=== PATIENT | male | born 1955 | race Caucasian/White ===

== ENCOUNTER 2016-07-17 11:00 | Inpatient (IN) | payer MEDICARE, MEDICAID ==
[2016-07-17] MEDS ORDERED: Thiamine IV* 100 MG, Folic Acid IV* 1 MG, Multiple Vitamin IV ADULT* 10 ML in NS 0.9% 1... IV ONE (11:44)
[2016-07-17] MEDS ORDERED: LORazepam INJ* 2 MG/ML 1 ML VIAL IV ONE (11:44)
[2016-07-17] MEDS ORDERED: Omeprazole CAP* 20 MG PO ONE (11:46)
[2016-07-17 12:04] LABS: Hematocrit 42 % (42-52); Hemoglobin 14.4 g/dl (14.0-18.0); Mean Corpuscular HGB Conc 34 g/dl (31-36); Mean Corpuscular Hemoglobin 34 pg (27-31); Mean Corpuscular Volume 100 fL (80-94); Mean Platelet Volume 9 um3 (7.4-10.4); Red Blood Count 4.21 10^6/ul (4.0-5.4); Red Cell Distribution Width 14 % (10.5-15); White Blood Count 3.4 10^3/ul (3.5-10.8)
[2016-07-17 12:06] LABS: Comments Flag Yes
[2016-07-17 12:08] LABS: Add Diff/Slide Review? Slide Review Added
[2016-07-17 12:18] LABS: ALT 60 U/L (7-52); AST 122 U/L (13-39); Albumin 4.1 g/dL (3.2-5.2); Alkaline Phosphatase 90 U/L (34-104); BUN/Creatinine Ratio 7.3 (8-20); Blood Urea Nitrogen 4 mg/dL (6-24); CO2 Carbon Dioxide 30 mmol/L (22-32); Calcium 9.9 mg/dL (8.6-10.3); Chloride 84 mmol/L (101-111); EGFR African American 196.1 (>60); EGFR Non-African American 152.5 (>60); Globulin 3.2 g/dL (2-4); Glucose 103 mg/dL (70-100); Sodium 132 mmol/L (133-145); Total Protein 7.3 g/dL (6.4-8.9)
[2016-07-17 12:29] LABS: Anion Gap 18 mmol/L (2-11); Potassium 2.5 mmol/L (3.5-5.0)
[2016-07-17 12:37] LABS: Urine Bacteria Absent (Absent); Urine Bilirubin Negative (Negative); Urine Glucose Negative (Negative); Urine Nitrite Negative (Negative)
[2016-07-17] MEDS ORDERED: Potassium Chloride LIQUID* 20 MEQ PACKET PO ONE (12:44)
[2016-07-17 12:45] LABS: Benzodiazepine Urine Screen None Detected (None Detect)
[2016-07-17 12:47] LABS: Alcohol < 10 mg/dL (<10)
[2016-07-17] MEDS ORDERED: LORazepam INJ* 2 MG/ML 1 ML VIAL ONE (13:40)
[2016-07-17] MEDS ORDERED: LORazepam INJ* 2 MG/ML 1 ML VIAL IV PUSH ONE (13:42)
[2016-07-17] MEDS ORDERED: Al Hydrox/Mg Hydrox/Simet LIQ* 30 ML UDC PO PRN (14:18)
[2016-07-17] MEDS ORDERED: Acetaminophen TAB* 325 MG PO PRN (14:21)
[2016-07-17 15:46] LABS: Albumin 3.7 g/dL (3.2-5.2); BUN/Creatinine Ratio 8.5 (8-20); Calcium 9.1 mg/dL (8.6-10.3); EGFR Non-African American 113.6 (>60); Globulin 2.6 g/dL (2-4); Total Bilirubin 1.1 mg/dL (0.2-1.0); Total Protein 6.3 g/dL (6.4-8.9)
[2016-07-17] MEDS: Enoxaparin(*) 40 MG/0.4 ML SYR SUBCUT SCH (15:46)
[2016-07-17 15:48] LABS: Potassium 2.6 mmol/L (3.5-5.0)
[2016-07-17] MEDS: Gabapentin CAP(*) 300 MG PO SCH ×2 (16:22→20:38)
[2016-07-17] MEDS: Potassium Chlor TAB* 20 MEQ TAB.ER PO SCH ×2 (16:22→17:29)
[2016-07-17] MEDS: NS 0.9% 1000 ML* 1,000 ML IV SCH (20:30)
[2016-07-17] MEDS: QUEtiapine TAB* 25 MG PO SCH (20:38)
--- NOTE | 2016-07-17 21:45 | HP ---
HISTORY AND PHYSICAL: DATE OF ADMISSION: 07/17/16 PRIMARY CARE PHYSICIAN: Unknown. CHIEF COMPLAINT: "I got a shot of Invega." HISTORY OF PRESENT ILLNESS: Mr. Vilchis is a 61-year-old male with a past medical history of alcohol abuse, schizoaffective disorder bipolar type, and GERD, who presents to the hospital after EMS found him in his apartment, unable to get out of bed, with his apartment in disarray. The patient's thinking is somewhat scattered and it is difficult to get an accurate history from him. The patient blames his current difficulty in ambulating and his weakness on his Invega medication, which he gets for his schizoaffective disorder. He gets this monthly and seems like his last dose was on 07/05/16. However, the patient states he got his dose on 06/22/16 at some sort of a alliance party. He attributes this to his difficulty with balance and he says he has been falling at home; he is becoming progressively weaker, and then today could not even get out of his chair. He states that he has not had anything to eat for the past 3 days. He does endorse drinking "whatever I can get my hands on." He states he usually has a [id number] of liquor per day. I am not clear how the EMS were alerted to the patient, but on arrival, there was a lot of empty liquor bottles, the patient was disheveled. He states that he was using the trash can for bathroom and he was unable to stand up, and he was brought to the emergency room for further evaluation. Of note, the patient's last admission here was in 2011, where he was admitted to the Psychiatric Floor. PAST MEDICAL HISTORY: Schizoaffective disorder, bipolar type; GERD; alcohol abuse. PAST SURGICAL HISTORY: None. MEDICATIONS: 1. Seroquel 50 mg by mouth at bedtime. 2. Invega 156 mg IM every 30 days. 3. Omeprazole 20 mg by mouth daily. 4. Gabapentin 300 mg by mouth 4 times daily. Although it is unclear how much the patient has been taking of these medications. However, he has had these refilled within the past month or so by his psychiatrist, Dr. Hermosillo. ALLERGIES: No known drug allergies. FAMILY HISTORY: Noncontributory. REVIEW OF SYSTEMS: The patient reports some intermittent abdominal pain. Denies any shortness of breath or chest pain. He has had some nausea and vomiting, last of which was yesterday. He denies any hematemesis. Reports some diarrhea. Remainder of 12-point review of systems is negative, except for that as noted in the HPI. PHYSICAL EXAMINATION GENERAL: The patient is a middle-aged, disheveled, man, lying in bed , asleep, slightly difficult to arouse. VITAL SIGNS: On admission, temperature 98.1, heart rate of 111, respiratory rate of 18, O2 saturation 97% on room air, blood pressure 149/84. HEENT: Pupils are equal, round, reactive to light and accommodation. Anicteric sclerae. Dry mucous membranes. NECK: No cervical adenopathy. LUNGS: Clear to auscultation bilaterally. No wheezes, rales, or rhonchi. CARDIOVASCULAR: Regular rate and rhythm. S1 and S2 present. No murmurs, gallops or rubs. ABDOMEN: Soft, nontender, nondistended. Bowel sounds positive. EXTREMITIES: No cyanosis, clubbing or edema. NEUROLOGIC: The patient is alert and oriented. No focal neurological deficits. No tremor noted. SKIN: Warm, dry, and well perfused. DIAGNOSTIC STUDIES/LABORATORY DATA: White blood cell count of 3.4, hematocrit of 42, platelets of 66. Sodium 132, potassium 2.5, chloride of 84, carbon dioxide of 30, BUN of 4, creatinine of 0.55, glucose of 103. Total bilirubin of 1.10, AST of 122, ALT of 60. Urinalysis with 2+ ketones, 2+ blood, 1+ WBCs. Serum alcohol is negative. Hepatitis C antibody is negative. U-tox is negative. EKG, personally reviewed, shows sinus tachycardia. No acute ST or T-wave changes. ASSESSMENT AND PLAN: Alcohol withdrawal, difficulty ambulating, weakness in a 61- year-old man, with a past medical history of alcohol abuse; schizoaffective disorder, bipolar type; and GERD. 1. Alcohol withdrawal: The patient received 2 mg of Ativan x2 in the emergency department. We will start the patient on WAM protocol. We will start normal saline at 100 cc per hour, p.r.n. Ativan available. The patient received a banana bag in the ED . We will continue on thiamine, folate, and multivitamin daily. 2. Mild alcoholic hepatitis, likely due to alcohol abuse. LFTs only minimally elevated. We will monitor and trend for now. 3. Thrombocytopenia, likely due to longstanding alcohol abuse. We will monitor daily and check for signs of bleeding. 4. Weakness: We will get a PT evaluation to assess the patient's physical status. 5. DVT prophylaxis: Lovenox subcu, which we can continue for now unless the platelets drop lower than 50. 6. Schizoaffective disorder: For now, we will continue the patient's home Seroquel and gabapentin. We will hold off on his psych consult at the moment. We will treat the patient's alcohol withdrawal and see how he is doing from a psychiatric standpoint after this. We will get a social work consult. 7. GERD: Continue home PPI. 8. Code status: The patient is full code. TIME SPENT: Total time spent on this admission 50 minutes, with over half the time spent [id number] with the patient in counseling and coordinating care. [id number]/CPS #: [id number] DEL
[2016-07-17] MEDS: LORazepam TAB(*) 1 MG PO SCH (22:19)
[2016-07-18] MEDS: LORazepam TAB(*) 1 MG PO SCH ×9 (04:54→23:22)
[2016-07-18 06:25] LABS: Hematocrit 38 % (42-52); Hemoglobin 12.9 g/dl (14.0-18.0); Mean Corpuscular HGB Conc 34 g/dl (31-36); Mean Corpuscular Hemoglobin 34 pg (27-31); Mean Corpuscular Volume 101 fL (80-94); Mean Platelet Volume 10 um3 (7.4-10.4); Red Blood Count 3.78 10^6/ul (4.0-5.4); Red Cell Distribution Width 15 % (10.5-15); White Blood Count 3.9 10^3/ul (3.5-10.8)
[2016-07-18 06:28] LABS: Comments Flag Yes
[2016-07-18 06:40] LABS: Albumin 3.3 g/dL (3.2-5.2); BUN/Creatinine Ratio 7.8 (8-20); Calcium 8.1 mg/dL (8.6-10.3); EGFR African American 213.9 (>60); EGFR Non-African American 166.3 (>60); Globulin 2.5 g/dL (2-4); Total Bilirubin 1.1 mg/dL (0.2-1.0); Total Protein 5.8 g/dL (6.4-8.9)
[2016-07-18 06:43] LABS: Potassium 2.4 mmol/L (3.5-5.0)
[2016-07-18] MEDS ORDERED: Potassium Chlor TAB* 20 MEQ TAB.ER PO ONE (06:50)
[2016-07-18] MEDS: Omeprazole CAP* 20 MG PO SCH (07:18)
[2016-07-18] MEDS: NS 0.9% 1000 ML* 1,000 ML IV SCH ×2 (07:21→17:50)
[2016-07-18] MEDS: Folic Acid TAB* 1 MG PO SCH (08:26)
[2016-07-18] MEDS: Thiamine TAB* 100 MG TAB PO SCH (08:26)
[2016-07-18] MEDS: Gabapentin CAP(*) 300 MG PO SCH ×4 (08:26→23:11)
[2016-07-18] MEDS: Multivitamins/Minerals TAB PO SCH (08:26)
[2016-07-18] MEDS ORDERED: Influenza VAC *QUAD* 2016-17* 0.5 ML SYRINGE IM ONE (09:00)
[2016-07-18] MEDS ORDERED: Pneumococcal *Vac Polyvalent 0.5 ML VIAL IM ONE (09:00)
[2016-07-18 09:18] LABS: Magnesium 1.1 mg/dL (1.9-2.7); Phosphorus 1.9 mg/dL (2.5-5.0)
[2016-07-18] MEDS: Potassium Chlor TAB* 20 MEQ TAB.ER PO SCH ×2 (09:38→12:04)
[2016-07-18 14:05] LABS: BUN/Creatinine Ratio 10.5 (8-20); Calcium 8.4 mg/dL (8.6-10.3); EGFR African American 188.2 (>60); EGFR Non-African American 146.3 (>60); Magnesium 1.1 mg/dL (1.9-2.7); Phosphorus 1.8 mg/dL (2.5-5.0); Potassium 3.6 mmol/L (3.5-5.0)
[2016-07-18] MEDS: Enoxaparin(*) 40 MG/0.4 ML SYR SUBCUT SCH (14:12)
[2016-07-18] MEDS ORDERED: Magnesium Sulfate IV* 3 GM in NS 0.9% 100 ML* 100 ML IVPB ONE (14:43)
[2016-07-18] MEDS ORDERED: Potassium Phosphate IV* 15 MMOLE in NS 0.9% 250 ML* 250 ML IVPB ONE (14:43)
--- NOTE | 2016-07-18 15:18 | PN ---
Subjective Date of Service: 07/18/16 Interval History: Patient seen this afternoon. Currently asleep, snoring loudly. Has been agitated and scoring high on WAM during the morning. Also had witnessed fall this morning, head glanced the table as he fell onto his bottom. Family History: Unchanged from Admission Social History: Unchanged from Admission Past Medical History: Unchanged from Admission Objective Active Medications: Acetaminophen (Tylenol Tab*) 650 mg PO Q4H PRN Al Hydrox/Mg Hydrox/Simethicone (Maalox Plus*) 30 ml PO Q6H PRN Enoxaparin Sodium (Lovenox(*)) 40 mg SUBCUT Q24H ELIS Folic Acid (Folvite Tab*) 1 mg PO DAILY ELIS Gabapentin (Neurontin Cap(*)) 300 mg PO QID ELIS Sodium Chloride (Ns 0.9% 1000 Ml*) 1,000 mls @ 100 mls/hr IV PER RATE ELIS Potassium Phosphate 15 mmole/ (Sodium Chloride) 255 mls @ 42 mls/hr IVPB ONCE ONE Magnesium Sulfate 3 gm/ Sodium (Chloride) 106 mls @ 53 mls/hr IVPB ONCE ONE Lorazepam (Ativan Tab(*)) 0 mg PO .PER WAM SCORE ELIS Lorazepam (Ativan Tab(*)) 2 mg PO Q8H ELIS Multivitamins/Minerals (Theragran/Minerals Tab*) 1 tab PO DAILY ELIS Omeprazole (Prilosec Cap*) 20 mg PO 0730 ELIS Quetiapine Fumarate (Seroquel Tab*) 50 mg PO BEDTIME ELIS Thiamine HCl (Vitamin B-1 Tab*) 100 mg PO DAILY [facility] Vital Signs 07/17/16 07/17/16 07/17/16 15:18 15:47 15:49 Temperature 98.7 F 98.7 F Pulse Rate 126 125 Respiratory 18 18 18 Rate Blood Pressure 121/69 121/69 (mmHg) O2 Sat by Pulse 99 99 Oximetry 07/18/16 07/18/16 07/18/16 04:01 04:47 04:54 Temperature 98.5 F Pulse Rate 115 90 Respiratory 18 18 Rate Blood Pressure 133/77 159/85 (mmHg) O2 Sat by Pulse 98 100 Oximetry 07/18/16 07/18/16 07/18/16 13:11 14:04 14:06 Temperature 98.3 F Pulse Rate 127 125 Respiratory 16 16 16 Rate Blood Pressure 141/74 155/98 (mmHg) O2 Sat by Pulse 100 99 Oximetry Oxygen Devices in Use Now: None Appearance: Middle-aged, M, laying in bed, asleep Eyes: No Scleral Icterus Ears/Nose/Mouth/Throat: - - Dry MM Neck: NL Appearance and Movements; NL JVP Respiratory: Symmetrical Chest Expansion and Respiratory Effort, Clear to Auscultation Cardiovascular: NL Sounds; No Murmurs; No JVD, RRR Abdominal: NL Sounds; No Tenderness; No Distention Lymphatic: No Cervical Adenopathy Extremities: No Edema Skin: No Rash or Ulcers Neurological: - - Asleep, snoring loudly Result Diagrams: 07/18/16 05:45 07/18/16 13:40 Additional Lab and Data: Assess/Plan/Problems-Billing Assessment: EtOH withdrawal in a 61 yo M with hx of EtOH abuse, schizoaffective disorder and GERD - Patient Problems (1) Alcohol withdrawal Current Visit: Yes Comment: Patient requiring significant doses of Ativan. Will start scheduled doses today with plan to taper over the next few days, continue prn ativan. Continue thiamine, folate and MVM. Mild alcholic hepatitis improving. (2) Thrombocytopenia Current Visit: Yes Comment: Platelets up a bit today. Likely low from EtOH. Continue to monitor. (3) Schizoaffective disorder, bipolar type Current Visit: Yes Comment: Continue seroquel (4) GERD (gastroesophageal reflux disease) Current Visit: Yes Comment: Continue PPI (5) Electrolyte abnormality Current Visit: Yes Comment: Replete K, Mg, Phos (6) Weakness Current Visit: Yes Comment: Will need to wait until withdrawal symptoms improve. Reorder PT at that time. (7) DVT prophylaxis Current Visit: Yes Status: Acute Code(s): [id number] - SNOMED Code(s): 613037068
[2016-07-18] MEDS ORDERED: LORazepam INJ* 2 MG/ML 1 ML VIAL IV PUSH PRN (20:25)
[2016-07-18] MEDS: QUEtiapine TAB* 25 MG PO SCH (23:11)
[2016-07-19] MEDS: LORazepam TAB(*) 1 MG PO SCH ×3 (00:21→07:52)
[2016-07-19] MEDS: Thiamine TAB* 100 MG TAB PO SCH (07:52)
[2016-07-19] MEDS: Gabapentin CAP(*) 300 MG PO SCH ×4 (07:53→20:12)
[2016-07-19] MEDS: Multivitamins/Minerals TAB PO SCH (07:53)
[2016-07-19] MEDS: Omeprazole CAP* 20 MG PO SCH (07:53)
[2016-07-19] MEDS: Folic Acid TAB* 1 MG PO SCH (07:54)
[2016-07-19] MEDS ORDERED: NS 0.9% 1000 ML* 1,000 ML IV ONE (12:59)
[2016-07-19 14:47] LABS: Hemoglobin 12.7 g/dl (14.0-18.0); Mean Corpuscular Hemoglobin 34 pg (27-31); Red Blood Count 3.72 10^6/ul (4.0-5.4); White Blood Count 4.6 10^3/ul (3.5-10.8)
[2016-07-19 14:51] LABS: Hematocrit 39 % (42-52); Mean Corpuscular HGB Conc 33 g/dl (31-36); Mean Corpuscular Volume 105 fL (80-94); Mean Platelet Volume 10 um3 (7.4-10.4); Red Cell Distribution Width 15 % (10.5-15)
[2016-07-19 14:54] LABS: Comments Flag Yes
[2016-07-19 15:02] LABS: BUN/Creatinine Ratio 6.9 (8-20); Calcium 8.3 mg/dL (8.6-10.3); EGFR African American 97.2 (>60); EGFR Non-African American 75.6 (>60); Potassium 2.8 mmol/L (3.5-5.0)
--- NOTE | 2016-07-19 15:07 | PN ---
Subjective Date of Service: 07/19/16 Interval History: CAT team called this morning due to hypotension. Patient had been lethargic for most of the morning, BPs had been a bit soft prior (SBP in 90s) but then dropped to the 60s. Patient was transferred to bed with improvement in his BPs to 90s again without any other intervention. IV was placed as he had pulled his out overnight. Throughout the episode he remained somewhat lethargic but was oriented to surroundings and responding appropriately. Access was obtained and he was given a 1L bolus and restarted on maintenance fluids. On re-examination later in the afternoon he was sleeping, VSS have remained stable. Family History: Unchanged from Admission Social History: Unchanged from Admission Past Medical History: Unchanged from Admission Objective Active Medications: Acetaminophen (Tylenol Tab*) 650 mg PO Q4H PRN Al Hydrox/Mg Hydrox/Simethicone (Maalox Plus*) 30 ml PO Q6H PRN Enoxaparin Sodium (Lovenox(*)) 40 mg SUBCUT Q24H ELIS Folic Acid (Folvite Tab*) 1 mg PO DAILY ELIS Gabapentin (Neurontin Cap(*)) 300 mg PO QID ELIS Sodium Chloride (Ns 0.9% 1000 Ml*) 1,000 mls @ 100 mls/hr IV PER RATE ELIS Lorazepam (Ativan Tab(*)) 0 mg PO .PER WAM SCORE ELIS Lorazepam (Ativan Inj*) 2 mg IV PUSH Q6H PRN Multivitamins/Minerals (Theragran/Minerals Tab*) 1 tab PO DAILY ELIS Omeprazole (Prilosec Cap*) 20 mg PO 0730 ELIS Quetiapine Fumarate (Seroquel Tab*) 50 mg PO BEDTIME ELIS Thiamine HCl (Vitamin B-1 Tab*) 100 mg PO DAILY [facility] Vital Signs 07/18/16 07/18/16 07/18/16 16:12 17:56 18:03 Temperature 98.3 F 97.6 F Pulse Rate 88 103 Respiratory 20 16 16 Rate Blood Pressure 127/78 149/88 (mmHg) O2 Sat by Pulse 100 99 Oximetry 07/19/16 07/19/16 07/19/16 00:21 01:00 01:11 Temperature Pulse Rate Respiratory 12 14 14 Rate Blood Pressure (mmHg) O2 Sat by Pulse Oximetry 07/19/16 07/19/16 07/19/16 02:11 02:21 04:00 Temperature 97.8 F 98.3 F Pulse Rate 99 109 Respiratory 16 14 16 Rate Blood Pressure 149/97 150/96 (mmHg) O2 Sat by Pulse 100 100 Oximetry 07/19/16 07/19/16 07/19/16 06:00 06:32 07:19 Temperature 96.9 F 98.2 F Pulse Rate 121 114 Respiratory 16 15 18 Rate Blood Pressure 138/105 134/81 (mmHg) O2 Sat by Pulse 99 100 Oximetry 07/19/16 07/19/16 12:22 13:33 Temperature Pulse Rate 125 Respiratory 16 12 Rate Blood Pressure 68/44 (mmHg) O2 Sat by Pulse 100 Oximetry Oxygen Devices in Use Now: None Appearance: Middle-aged, M, laying in bed in NAD Eyes: No Scleral Icterus Ears/Nose/Mouth/Throat: - - Dry MM Neck: NL Appearance and Movements; NL JVP Respiratory: Symmetrical Chest Expansion and Respiratory Effort, Clear to Auscultation Cardiovascular: NL Sounds; No Murmurs; No JVD, RRR Abdominal: NL Sounds; No Tenderness; No Distention Lymphatic: No Cervical Adenopathy Extremities: No Edema Skin: No Rash or Ulcers Neurological: - - Lethargic, oriented, no focal deficits Result Diagrams: 07/19/16 13:15 07/18/16 13:40 Additional Lab and Data: Assess/Plan/Problems-Billing Assessment: EtOH withdrawal in a 61 yo M with hx of EtOH abuse, schizoaffective disorder and GERD - Patient Problems (1) Alcohol withdrawal Current Visit: Yes Comment: Hypotension likely from abundance of BZDs. Will stop scheduled Ativan for now. Continue prn ativan alone. Hold on transfer at this time, continue IVF. Check full panel of labs. Continue thiamine, folate and MVM. (2) Thrombocytopenia Current Visit: Yes Comment: Improving, likely from EtOH. (3) Schizoaffective disorder, bipolar type Current Visit: Yes Comment: Continue seroquel (4) GERD (gastroesophageal reflux disease) Current Visit: Yes Comment: Continue PPI (5) Electrolyte abnormality Current Visit: Yes Comment: Replete K, Mg, Phos prn (6) Weakness Current Visit: Yes Comment: Will need to wait until withdrawal symptoms improve. Reorder PT at that time. (7) DVT prophylaxis Current Visit: Yes Status: Acute Code(s): OHD2701 - SNOMED Code(s): 653295777
[2016-07-19] MEDS: NS 0.9% 1000 ML* 1,000 ML IV SCH (15:26)
[2016-07-19] MEDS: Enoxaparin(*) 40 MG/0.4 ML SYR SUBCUT SCH (15:27)
[2016-07-19] MEDS: Potassium Chlor TAB* 20 MEQ TAB.ER PO SCH ×2 (18:24→20:19)
[2016-07-19 18:30] LABS: Albumin 3.4 g/dL (3.2-5.2); Globulin 2.6 g/dL (2-4); Magnesium 1.7 mg/dL (1.9-2.7); Phosphorus 2.4 mg/dL (2.5-5.0); Total Bilirubin 1.1 mg/dL (0.2-1.0)
[2016-07-19] MEDS ORDERED: Magnesium Sulfate 2 GM IV* 2 GM/50 ML BAG IVPB ONE (19:10)
[2016-07-19] MEDS: QUEtiapine TAB* 25 MG PO SCH (20:20)
--- NOTE | 2016-07-20 07:59 | ED ---
Lee Watts Rebecca, scribed for Moreno Kennedy MD on 07/17/16 at 1317 . Psychiatric Complaint - HPI Summary HPI Summary: Pt is a 61 y/o M BIBA who presents to ED desiring detox. States that he received a shot of Invega which has gradually been causing side effects. Pt c/o vomiting and insomnia. Denies hematemesis and melena. Reports that he last drank 3 days ago (Saturday), having 7 or 8 drinks. Typically drinks a 1.75 liter bottle of vodka over 3 days. PMHx substance abuse (tried AA which did not help). Has not been taking Seroquel. When asked, pt stated that the [facility] had been performing experimentation on him and that law enforcement was targeting him. IF THERE IS ONE, PLEASE SEE DICTATION BY DR. KENNEDY FOR FURTHER INFORMATION. - History Of Current Complaint Chief Complaint: EDDetoxRequest Time Seen by Provider: 07/17/16 11:44 Hx Obtained From: Patient Onset/Duration: Gradual Onset - s/p Invega shot Aggravating Factor(s): Nothing Alleviating Factor(s): Nothing Associated Signs And Symptoms: Positive: Negative Related History: Positive For: Prior Psychiatric Issues - Bipolar, substance abuse, Drug Abuse Counseling - AA - Allergies/Home Medications Allergies/Adverse Reactions: Allergies Allergy/AdvReac Type Severity Reaction Status Date / Time No Known Allergies Allergy Verified 07/17/16 11:28 Home Medications: Home Medications Gabapentin CAP(*) [Neurontin 300 CAP(*)] 300 mg PO QID 07/17/16 [History Confirmed 07/17/16] Omeprazole CAP* [Prilosec CAP* 20 MG] 20 mg PO DAILY 07/17/16 [History Confirmed 07/17/16] Paliperidone SUSTENNA* [Invega Sustenna*] 156 mg IM Q30D 07/17/16 [History Confirmed 07/17/16] QUEtiapine TAB* [SEROquel TAB*] 50 mg PO BEDTIME 07/17/16 [History Confirmed 09/28] PMH/Surg Hx/FS Hx/Imm Hx Respiratory History: Reports: Hx Chronic Obstructive Pulmonary Disease (COPD) GI History: Reports: Hx Gastroesophageal Reflux Disease Neurological History: Reports: Hx Seizures - likely EtOH related Psychiatric History: Reports: Hx Schizophrenia, Hx Bipolar Disorder, Hx Substance Abuse - EtOH Denies: Hx Suicide Attempt Infectious Disease History: No Infectious Disease History: Denies: Traveled Outside the [place] in Last 30 Days - Family History Known Family History: Positive: Other - OCD (father) - Social History Occupation: Unemployed Alcohol Use: Daily Substance Use Type: Reports: None Smoking Status (MU): Heavy Every Day Tobacco Smoker Review of Systems - ROS Summary Review of Systems Summary: IF THERE IS ONE, PLEASE SEE DICTATION BY DR. KENNEDY FOR FURTHER INFORMATION. Positive: Vomiting, Other - Denies hematemesis Positive: other - Denies melena Positive: Other - Insomnia All Other Systems Reviewed And Are Negative: Yes Physical Exam - Summary Physical Exam Summary: GENERAL: Awake, alert, oriented, no acute distress, ill kempt, tremulous, pale HEAD/FACE: Head is normocephalic, atraumatic EYES: Anicteric sclera, pale conjunctiva ENT: Mucous membranes moist, no erythema, no discharge, no lesions, neck is supple, trachea is midline, no JVD CARDIAC: Regular rate and rhythm, S1, S2, no rub, no murmur, no gallop, 2+ radial and pedal pulses bilaterally RESPIRATORY: Clear to auscultation bilaterally with no rales, rhonchi, or wheezes, non-tender ABDOMEN: Bowel sounds positive, no bruit, soft, non-tender, no CVA tenderness, no varicosities EXTREMITIES: No edema, warm, dry, moving all extremities in a grossly normal manner NEUROLOGICAL: Mood is appropriate, moving all extremities in a grossly normal manner IF THERE IS ONE, PLEASE SEE DICTATION BY DR. KENNEDY FOR FURTHER INFORMATION. Triage Information Reviewed: Yes Vital Signs On Initial Exam: Initial Vitals Temp Pulse Resp BP Pulse Ox 98.1 F 111 18 149/84 97 07/17/16 11:07 07/17/16 11:07 07/17/16 11:07 07/17/16 11:07 07/17/16 11:07 Vital Signs Reviewed: Yes - [place] Coma Scale Coma Scale Total: 15 Diagnostics - Vital Signs Vital Signs Temp Pulse Resp BP Pulse Ox 07/17/16 12:02 97 07/17/16 11:56 18 07/17/16 11:15 114 97 07/17/16 11:13 149/84 07/17/16 11:07 98.1 F 111 18 149/84 97 - Laboratory Lab Results: Lab Results 07/17/16 07/17/16 07/17/16 Range/Units 11:50 11:50 12:09 WBC 3.4 L (3.5-10.8) 10^3/ul RBC 4.21 (4.0-5.4) 10^6/ul Hgb 14.4 (14.0-18.0) g/dl Hct 42 (42-52) % MCV 100 H (80-94) fL MCH 34 H (27-31) pg MCHC 34 (31-36) g/dl RDW 14 (10.5-15) % Plt Count 66 L (150-450) 10^3/ul MPV 9 (7.4-10.4) um3 Neut % (Auto) 76.5 (38-83) % Lymph % (Auto) 9.0 L (25-47) % Randall % (Auto) 13.8 H (1-9) % Eos % (Auto) 0.1 (0-6) % Baso % (Auto) 0.6 (0-2) % Absolute Neuts (auto) 2.6 (1.5-7.7) 10^3/ul Absolute Lymphs (auto) 0.3 L (1.0-4.8) 10^3/ul Absolute Monos (auto) 0.5 (0-0.8) 10^3/ul Absolute Eos (auto) 0 (0-0.6) 10^3/ul Absolute Basos (auto) 0 (0-0.2) 10^3/ul Absolute Nucleated RBC 0.01 10^3/ul Nucleated RBC % 0.2 Hem Pathologist Commnt Pending Sodium 132 L (133-145) mmol/L Potassium 2.5 L* (3.5-5.0) mmol/L Chloride 84 L (101-111) mmol/L Carbon Dioxide 30 (22-32) mmol/L Anion Gap 18 H (2-11) mmol/L BUN 4 L (6-24) mg/dL Creatinine 0.55 L (0.67-1.17) mg/dL Est GFR ( Amer) 196.1 (>60) Est GFR (Non-Af Amer) 152.5 (>60) BUN/Creatinine Ratio 7.3 L (8-20) Glucose 103 H (70-100) mg/dL Calcium 9.9 (8.6-10.3) mg/dL Total Bilirubin 1.10 H (0.2-1.0) mg/dL AST 122 H (13-39) U/L ALT 60 H (7-52) U/L Alkaline Phosphatase 90 (34-104) U/L Total Protein 7.3 (6.4-8.9) g/dL Albumin 4.1 (3.2-5.2) g/dL Globulin 3.2 (2-4) g/dL Albumin/Globulin Ratio 1.3 (1-3) Urine Color Yellow Urine Appearance Clear Urine pH 7.0 (5-9) Ur Specific [facility] 1.011 (1.010-1.030) Urine Protein 2+(100 mg/dl) H (Negative) Urine Ketones 2+ H (Negative) Urine Blood 2+ H (Negative) Urine Nitrate Negative (Negative) Urine Bilirubin Negative (Negative) Urine Urobilinogen Negative (Negative) Ur Leukocyte Esterase Negative (Negative) Urine WBC (Auto) 1+(6-10/hpf) H (Absent) Urine RBC (Auto) Trace(0-2/hpf) (Absent) Ur Squamous Epith Cells Present H (Absent) Urine Bacteria Absent (Absent) Urine Glucose Negative (Negative) Urine Opiates Screen (None Detect) Ur Barbiturates Screen (None Detect) Ur Phencyclidine Scrn (None Detect) Ur Amphetamines Screen (None Detect) U Benzodiazepines Scrn (None Detect) Urine Cocaine Screen (None Detect) U Cannabinoids Screen (None Detect) Serum Alcohol < 10 (<10) mg/dL 07/17/16 Range/Units 12:09 WBC (3.5-10.8) 10^3/ul RBC (4.0-5.4) 10^6/ul Hgb (14.0-18.0) g/dl Hct (42-52) % MCV (80-94) fL MCH (27-31) pg MCHC (31-36) g/dl RDW (10.5-15) % Plt Count (150-450) 10^3/ul MPV (7.4-10.4) um3 Neut % (Auto) (38-83) % Lymph % (Auto) (25-47) % Randall % (Auto) (1-9) % Eos % (Auto) (0-6) % Baso % (Auto) (0-2) % Absolute Neuts (auto) (1.5-7.7) 10^3/ul Absolute Lymphs (auto) (1.0-4.8) 10^3/ul Absolute Monos (auto) (0-0.8) 10^3/ul Absolute Eos (auto) (0-0.6) 10^3/ul Absolute Basos (auto) (0-0.2) 10^3/ul Absolute Nucleated RBC 10^3/ul Nucleated RBC % Hem Pathologist Commnt Sodium (133-145) mmol/L Potassium (3.5-5.0) mmol/L Chloride (101-111) mmol/L Carbon Dioxide (22-32) mmol/L Anion Gap (2-11) mmol/L BUN (6-24) mg/dL Creatinine (0.67-1.17) mg/dL Est GFR ( Amer) (>60) Est GFR (Non-Af Amer) (>60) BUN/Creatinine Ratio (8-20) Glucose (70-100) mg/dL Calcium (8.6-10.3) mg/dL Total Bilirubin (0.2-1.0) mg/dL AST (13-39) U/L ALT (7-52) U/L Alkaline Phosphatase (34-104) U/L Total Protein (6.4-8.9) g/dL Albumin (3.2-5.2) g/dL Globulin (2-4) g/dL Albumin/Globulin Ratio (1-3) Urine Color Urine Appearance Urine pH (5-9) Ur Specific [facility] (1.010-1.030) Urine Protein (Negative) Urine Ketones (Negative) Urine Blood (Negative) Urine Nitrate (Negative) Urine Bilirubin (Negative) Urine Urobilinogen (Negative) Ur Leukocyte Esterase (Negative) Urine WBC (Auto) (Absent) Urine RBC (Auto) (Absent) Ur Squamous Epith Cells (Absent) Urine Bacteria (Absent) Urine Glucose (Negative) Urine Opiates Screen None detected (None Detect) Ur Barbiturates Screen None detected (None Detect) Ur Phencyclidine Scrn None detected (None Detect) Ur Amphetamines Screen None detected (None Detect) U Benzodiazepines Scrn None detected (None Detect) Urine Cocaine Screen None detected (None Detect) U Cannabinoids Screen None detected (None Detect) Serum Alcohol (<10) mg/dL Result Diagrams: 07/19/16 13:15 07/19/16 13:15 Lab Statement: Any lab studies that have been ordered have been reviewed, and results considered in the medical decision making process. - EKG 1216 Cardiac Rate: Tachycardia - 115 bpm EKG Rhythm: Sinus Tachycardia EKG Interpretation: No acute ischemia Course/Dx - Differential Dx/Clinical Impression Provider Diagnosis: Alcohol withdrawal - Physician Notifications Discussed Care Of Patient With: Dr. Castellanos, hospitalist, who agrees to admit pt. Time Discussed With Above Provider: 13:00 Discharge - Discharge Plan Condition: Stable Disposition: ADMITTED TO [facility] documentation as recorded by the Lee mason Rebecca accurately reflects the service I personally performed and the decisions made by Brent frias Steven, MD.
[2016-07-20] MEDS: Thiamine TAB* 100 MG TAB PO SCH (09:01)
[2016-07-20] MEDS: Gabapentin CAP(*) 300 MG PO SCH ×4 (09:01→21:29)
[2016-07-20] MEDS: Multivitamins/Minerals TAB PO SCH (09:01)
[2016-07-20] MEDS: Omeprazole CAP* 20 MG PO SCH (09:01)
[2016-07-20] MEDS: Folic Acid TAB* 1 MG PO SCH (09:01)
[2016-07-20] MEDS ORDERED: Mouth Piece, Nicotine* 1 EACH CARTRIDGE ONE (11:02)
[2016-07-20] MEDS: Nicotine Inhaler* 10 MG AMP INH PRN ×3 (11:05→22:23)
--- NOTE | 2016-07-20 11:42 | PN ---
Subjective Date of Service: 07/20/16 Interval History: Has no complaints. Was sleeping. Denies anxiety, agitation, hallucinations, LIU. Does feel a little confused Family History: Unchanged from Admission Social History: Unchanged from Admission Past Medical History: Unchanged from Admission Objective Active Medications: Acetaminophen (Tylenol Tab*) 650 mg PO Q4H PRN PRN Reason: PAIN Al Hydrox/Mg Hydrox/Simethicone (Maalox Plus*) 30 ml PO Q6H PRN PRN Reason: INDIGESTION Enoxaparin Sodium (Lovenox(*)) 40 mg SUBCUT Q24H [facility] Last Admin: 07/19/16 15:27 Dose: 40 mg Folic Acid (Folvite Tab*) 1 mg PO DAILY [facility] Last Admin: 07/20/16 09:01 Dose: 1 mg Gabapentin (Neurontin Cap(*)) 300 mg PO QID [facility] Last Admin: 07/20/16 09:01 Dose: 300 mg Sodium Chloride (Ns 0.9% 1000 Ml*) 1,000 mls @ 100 mls/hr IV PER RATE [facility] Last Admin: 07/19/16 15:26 Dose: 100 mls/hr Lorazepam (Ativan Tab(*)) 0 mg PO .PER WAM SCORE [facility] PRN Reason: Protocol Last Admin: 07/19/16 06:32 Dose: 2 mg Multivitamins/Minerals (Theragran/Minerals Tab*) 1 tab PO DAILY [facility] Last Admin: 07/20/16 09:01 Dose: 1 tab Nicotine (Nicotine Inhaler*) 10 mg INH Q2H PRN PRN Reason: CRAVING Last Admin: 07/20/16 11:05 Dose: 10 mg Omeprazole (Prilosec Cap*) 20 mg PO 0730 [facility] Last Admin: 07/20/16 09:01 Dose: 20 mg Quetiapine Fumarate (Seroquel Tab*) 50 mg PO BEDTIME [facility] Last Admin: 07/19/16 20:20 Dose: 50 mg Thiamine HCl (Vitamin B-1 Tab*) 100 mg PO DAILY [facility] Last Admin: 07/20/16 09:01 Dose: 100 mg Vital Signs 07/19/16 07/19/16 07/19/16 12:22 13:33 15:56 Temperature 97.4 F Pulse Rate 125 100 Respiratory 16 12 Rate Blood Pressure 68/44 144/90 (mmHg) O2 Sat by Pulse 100 100 Oximetry 07/19/16 07/19/16 07/19/16 17:50 18:25 19:59 Temperature 98.0 F 97.4 F Pulse Rate 119 106 Respiratory 16 18 Rate Blood Pressure 125/66 103/65 (mmHg) O2 Sat by Pulse 100 100 Oximetry 07/19/16 07/19/16 07/19/16 20:12 20:15 20:25 Temperature Pulse Rate Respiratory 20 20 18 Rate Blood Pressure (mmHg) O2 Sat by Pulse Oximetry 07/19/16 07/19/16 07/20/16 22:12 22:44 00:39 Temperature Pulse Rate 82 72 Respiratory 18 18 18 Rate Blood Pressure 133/75 141/70 (mmHg) O2 Sat by Pulse 100 100 Oximetry 07/20/16 07/20/16 07/20/16 00:42 03:52 03:53 Temperature 97.6 F 97.4 F Pulse Rate 81 Respiratory 18 Rate Blood Pressure 146/86 (mmHg) O2 Sat by Pulse 100 Oximetry 07/20/16 07/20/16 07/20/16 06:14 09:01 10:14 Temperature 98.1 F 97.1 F Pulse Rate 112 88 Respiratory 16 14 16 Rate Blood Pressure 165/97 132/74 (mmHg) O2 Sat by Pulse 100 100 Oximetry 07/20/16 11:01 Temperature Pulse Rate Respiratory 12 Rate Blood Pressure (mmHg) O2 Sat by Pulse Oximetry Oxygen Devices in Use Now: None Appearance: NAD Eyes: No Scleral Icterus, PERRLA Ears/Nose/Mouth/Throat: Clear Oropharnyx, Mucous Membranes Moist Neck: NL Appearance and Movements; NL JVP Respiratory: Symmetrical Chest Expansion and Respiratory Effort, Clear to Auscultation Cardiovascular: NL Sounds; No Murmurs; No JVD, RRR Abdominal: NL Sounds; No Tenderness; No Distention Lymphatic: No Cervical Adenopathy Extremities: No Edema Neurological: Alert and Oriented x 3 Result Diagrams: 07/19/16 13:15 07/19/16 13:15 Additional Lab and Data: Lab Results 07/17/16 07/17/16 07/17/16 Range/Units 11:50 11:50 12:09 WBC 3.4 L (3.5-10.8) 10^3/ul RBC 4.21 (4.0-5.4) 10^6/ul Hgb 14.4 (14.0-18.0) g/dl Hct 42 (42-52) % MCV 100 H (80-94) fL MCH 34 H (27-31) pg MCHC 34 (31-36) g/dl RDW 14 (10.5-15) % Plt Count 66 L (150-450) 10^3/ul MPV 9 (7.4-10.4) um3 Neut % (Auto) 76.5 (38-83) % Lymph % (Auto) 9.0 L (25-47) % [place] % (Auto) 13.8 H (1-9) % Eos % (Auto) 0.1 (0-6) % Baso % (Auto) 0.6 (0-2) % Absolute Neuts (auto) 2.6 (1.5-7.7) 10^3/ul Absolute Lymphs (auto) 0.3 L (1.0-4.8) 10^3/ul Absolute Monos (auto) 0.5 (0-0.8) 10^3/ul Absolute Eos (auto) 0 (0-0.6) 10^3/ul Absolute Basos (auto) 0 (0-0.2) 10^3/ul Absolute Nucleated RBC 0.01 10^3/ul Nucleated RBC % 0.2 Hem Pathologist Commnt Pending Sodium 132 L (133-145) mmol/L Potassium 2.5 L* (3.5-5.0) mmol/L Chloride 84 L (101-111) mmol/L Carbon Dioxide 30 (22-32) mmol/L Anion Gap 18 H (2-11) mmol/L BUN 4 L (6-24) mg/dL Creatinine 0.55 L (0.67-1.17) mg/dL Est GFR ( Amer) 196.1 (>60) Est GFR (Non-Af Amer) 152.5 (>60) BUN/Creatinine Ratio 7.3 L (8-20) Glucose 103 H (70-100) mg/dL Calcium 9.9 (8.6-10.3) mg/dL Total Bilirubin 1.10 H (0.2-1.0) mg/dL AST 122 H (13-39) U/L ALT 60 H (7-52) U/L Alkaline Phosphatase 90 (34-104) U/L Total Protein 7.3 (6.4-8.9) g/dL Albumin 4.1 (3.2-5.2) g/dL Globulin 3.2 (2-4) g/dL Albumin/Globulin Ratio 1.3 (1-3) Urine Color Yellow Urine Appearance Clear Urine pH 7.0 (5-9) Ur Specific [place] 1.011 (1.010-1.030) Urine Protein 2+(100 mg/dl) H (Negative) Urine Ketones 2+ H (Negative) Urine Blood 2+ H (Negative) Urine Nitrate Negative (Negative) Urine Bilirubin Negative (Negative) Urine Urobilinogen Negative (Negative) Ur Leukocyte Esterase Negative (Negative) Urine WBC (Auto) 1+(6-10/hpf) H (Absent) Urine RBC (Auto) Trace(0-2/hpf) (Absent) Ur Squamous Epith Cells Present H (Absent) Urine Bacteria Absent (Absent) Urine Glucose Negative (Negative) Urine Opiates Screen (None Detect) Ur Barbiturates Screen (None Detect) Ur Phencyclidine Scrn (None Detect) Ur Amphetamines Screen (None Detect) U Benzodiazepines Scrn (None Detect) Urine Cocaine Screen (None Detect) U Cannabinoids Screen (None Detect) Serum Alcohol < 10 (<10) mg/dL 07/17/16 Range/Units 12:09 WBC (3.5-10.8) 10^3/ul RBC (4.0-5.4) 10^6/ul Hgb (14.0-18.0) g/dl Hct (42-52) % MCV (80-94) fL MCH (27-31) pg MCHC (31-36) g/dl RDW (10.5-15) % Plt Count (150-450) 10^3/ul MPV (7.4-10.4) um3 Neut % (Auto) (38-83) % Lymph % (Auto) (25-47) % [place] % (Auto) (1-9) % Eos % (Auto) (0-6) % Baso % (Auto) (0-2) % Absolute Neuts (auto) (1.5-7.7) 10^3/ul Absolute Lymphs (auto) (1.0-4.8) 10^3/ul Absolute Monos (auto) (0-0.8) 10^3/ul Absolute Eos (auto) (0-0.6) 10^3/ul Absolute Basos (auto) (0-0.2) 10^3/ul Absolute Nucleated RBC 10^3/ul Nucleated RBC % Hem Pathologist Commnt Sodium (133-145) mmol/L Potassium (3.5-5.0) mmol/L Chloride (101-111) mmol/L Carbon Dioxide (22-32) mmol/L Anion Gap (2-11) mmol/L BUN (6-24) mg/dL Creatinine (0.67-1.17) mg/dL Est GFR ( Amer) (>60) Est GFR (Non-Af Amer) (>60) BUN/Creatinine Ratio (8-20) Glucose (70-100) mg/dL Calcium (8.6-10.3) mg/dL Total Bilirubin (0.2-1.0) mg/dL AST (13-39) U/L ALT (7-52) U/L Alkaline Phosphatase (34-104) U/L Total Protein (6.4-8.9) g/dL Albumin (3.2-5.2) g/dL Globulin (2-4) g/dL Albumin/Globulin Ratio (1-3) Urine Color Urine Appearance Urine pH (5-9) Ur Specific [place] (1.010-1.030) Urine Protein (Negative) Urine Ketones (Negative) Urine Blood (Negative) Urine Nitrate (Negative) Urine Bilirubin (Negative) Urine Urobilinogen (Negative) Ur Leukocyte Esterase (Negative) Urine WBC (Auto) (Absent) Urine RBC (Auto) (Absent) Ur Squamous Epith Cells (Absent) Urine Bacteria (Absent) Urine Glucose (Negative) Urine Opiates Screen None detected (None Detect) Ur Barbiturates Screen None detected (None Detect) Ur Phencyclidine Scrn None detected (None Detect) Ur Amphetamines Screen None detected (None Detect) U Benzodiazepines Scrn None detected (None Detect) Urine Cocaine Screen None detected (None Detect) U Cannabinoids Screen None detected (None Detect) Serum Alcohol (<10) mg/dL Assess/Plan/Problems-Billing Assessment: EtOH withdrawal in a 61 yo M with hx of EtOH abuse, schizoaffective disorder and GERD - Patient Problems (1) Alcohol withdrawal Comment: No ativan overnight continue on WAM Continue thiamine, folate and MVM. (2) Electrolyte abnormality Comment: Replete K, Mg, Phos prn (3) Schizoaffective disorder, bipolar type Comment: Continue seroquel (4) Thrombocytopenia Comment: trend- likely from EtOH. (5) DVT prophylaxis Comment: lovenox Status and Disposition: suspect 24-48 hrs
[2016-07-20] MEDS: Enoxaparin(*) 40 MG/0.4 ML SYR SUBCUT SCH (15:14)
[2016-07-20] MEDS: NS 0.9% 1000 ML* 1,000 ML IV SCH (17:19)
[2016-07-20] MEDS: QUEtiapine TAB* 25 MG PO SCH (21:25)
[2016-07-20] MEDS: LORazepam TAB(*) 1 MG PO SCH (22:29)
[2016-07-21 04:41] VITALS: BP 141/79
[2016-07-21 05:57] LABS: Hematocrit 33 % (42-52); Hemoglobin 11.2 g/dl (14.0-18.0); Mean Corpuscular HGB Conc 34 g/dl (31-36); Mean Corpuscular Hemoglobin 34 pg (27-31); Mean Corpuscular Volume 101 fL (80-94); Mean Platelet Volume 8 um3 (7.4-10.4); Red Blood Count 3.25 10^6/ul (4.0-5.4); Red Cell Distribution Width 14 % (10.5-15); White Blood Count 3.7 10^3/ul (3.5-10.8)
[2016-07-21 06:11] LABS: BUN/Creatinine Ratio 15.8 (8-20); Calcium 7.7 mg/dL (8.6-10.3); EGFR African American 188.2 (>60); EGFR Non-African American 146.3 (>60); Magnesium 1.3 mg/dL (1.9-2.7); Potassium 3.1 mmol/L (3.5-5.0)
[2016-07-21] MEDS: Folic Acid TAB* 1 MG PO SCH (08:48)
[2016-07-21] MEDS: Thiamine TAB* 100 MG TAB PO SCH (08:48)
[2016-07-21] MEDS: Gabapentin CAP(*) 300 MG PO SCH ×2 (08:48→12:51)
[2016-07-21] MEDS: Multivitamins/Minerals TAB PO SCH (08:48)
[2016-07-21] MEDS: Omeprazole CAP* 20 MG PO SCH (08:48)
[2016-07-21] MEDS ORDERED: Potassium Chlor TAB* 20 MEQ TAB.ER PO ONE (12:09)
[2016-07-21] MEDS ORDERED: Magnesium Sulfate 2 GM IV* 2 GM/50 ML BAG IVPB ONE (12:09)
--- NOTE | 2016-07-22 04:05 | DS ---
DISCHARGE SUMMARY: DATE OF ADMISSION: 07/17/16 DATE OF DISCHARGE: 07/21/16 PRIMARY CARE PROVIDER: Dr. Cameron Hermosillo from the ACT team. PRIMARY DIAGNOSIS: Alcohol withdrawal. SECONDARY DIAGNOSES: Include: 1. Bipolar disorder. 2. Hypokalemia. 3. Hypomagnesemia. 4. Gastroesophageal reflux disease. 5. History of alcohol abuse. HISTORY OF PRESENT ILLNESS AND HOSPITAL COURSE: This is a 61-year-old man who was found by EMS at his home in disarray, unable to get out of bed. I note he has been drinking over a pint and a half of alcohol a day at least. He was admitted to the hospital for alcohol withdrawal. He was treated with [place] protocol. He received 4 mg of Ativan over the 48 hours prior to his discharge with improvement in his symptoms. On the day of discharge, he was able to ambulate independently. The patient is adamant that alcohol had nothing to do with his presentation. He notes that he brought larger bottles of alcohol in the winter because he did not want to go out as much and has been drinking more , but he can "handle with alcohol well." He also said he believes in "better leaving to chemistry." He does not seem likely to decrease his alcohol consumption refusing additional services. He is established with Dr. Cameron Hermosillo in the community through the ACT team. He is particularly upset with Dr. Hermosillo. Dr. Hermosillo has not increased his Seroquel, which I additionally will not do here. The patient is adamant that his dose of Invega he receives monthly as an outpatient was to blame for his presentation. The patient reports different dates that he received Invega throughout the whole hospital, first at the beginning of the month, then around [place], then after [place]. In either case, he was treated for alcohol withdrawal with improvement in his symptoms, felt back to his baseline and able to manage at home independently on the day of discharge. There were no complications during the course of the hospital stay. At followup, please; 1. Evaluate for continued abstinence from alcohol. 2. Consider adjusting Invega dose if Dr. Hermosillo feels this can be contributing to the patient's presentation. 3. No other specific labs or vitals that need followup. 4. The patient was given DESIGN SPECIALIST number to establish care if he desires this time, does not want PCP, is generally mistrustful of medical system. Reasons to return to the hospital including, but not limited to worsening of symptoms including chest pain, shortness of breath, nausea, vomiting, lightheadedness, loss of consciousness, near loss of consciousness, inability to obtain or tolerate his medications were discussed with the patient. He acknowledged understanding. TIME SPENT: Greater than 60 minutes were spent on the discharge of this patient of which greater than half was spent [id number] with the patient. [id number]/[facility] #: [id number] DEL
== END 2016-07-21 14:30 | disposition home or self-care (01) | DRG 897 ==
LOC: ED 11:00 → MED 14:18
PROVIDERS: ADMIT Hospitalist; ATTEND Internal Medicine
DX: F10.239 Alcohol dependence with withdrawal, unspecified (principal); D69.6 Thrombocytopenia, unspecified; K70.10 Alcoholic hepatitis without ascites; Y90.0 Blood alcohol level of less than 20 mg/100 ml; E87.6 Hypokalemia; E83.42 Hypomagnesemia; K21.9 Gastro-esophageal reflux disease without esophagitis; F25.0 Schizoaffective disorder, bipolar type; Z79.899 Other long term (current) drug therapy
CPT/HCPCS: 36415; 80048; 80053; 80307; 80320; 81003; 81015; 83735; 84100; 85025; 85060; 86803; 90686; 90732; 93005; 99283; 99406; A9270-GY; G0480; J1650; J2060; J3411; J3475